=== PATIENT | male | born 1970 | race Caucasian/White ===

== ENCOUNTER → 2018-06-21 | Outpatient (CLI) | payer BC | LOC: COL.RAD 09:57 | DX: K21.9 Gastro-esophageal reflux disease without esophagitis (principal); R93.2 Abnormal findings on diagnostic imaging of liver and biliary tract; R93.5 Abnormal findings on diagnostic imaging of other abdominal regions, including retroperitoneum ==

== ENCOUNTER → 2018-06-29 | Outpatient (CLI) | payer BC | LOC: COL.RAD 08:10 | DX: K21.9 Gastro-esophageal reflux disease without esophagitis (principal); R63.4 Abnormal weight loss; R10.13 Epigastric pain | CPT/HCPCS: A9537 ==